=== PATIENT | female | born 1960 | race Caucasian/White ===

== ENCOUNTER 2017-01-12 23:30 | Inpatient (IN) | payer OTHER ==
--- NOTE | ~2017-01-12 | P ---
[facility] [place] [address] PROCEDURE REPORT Name: TESSA MCKEON Room #: 243-P ADM IN M.R.#: [id number] Admission: 01/13/17 Attend Phys: Rory Singletary MD Discharge: Date of : 64 Report #: [id number] THIS REPORT FOR: //name// CC: FAM unknown Rory Singletary DATE OF SERVICE: 01/13/2017 DATE OF SERVICE: 01/13/2017 PROCEDURE: Initially, right subclavian triple lumen catheter insertion was inadvertently placed in the right subclavian artery, then with subsequent left femoral line triple lumen venous catheter placement. INDICATION: Status post arrest, poor venous access. The patient requiring central access for vasopressors. PROCEDURE NOTATION: Right subclavian site was chosen cleansed with 2% chlorhexidine gluconate, ____ she was put in place and using maximal barrier method including head gown, mask, gloves. Right subclavian area was approached using an infraclavicular approach. Finder needle did aspirate arterial blood on the initial attempt, but no J wire was placed; however, after reattempting, slow drainage of blood was noted. J-wire was advanced with ectopy noted on the monitor. Needle was removed. A small dermotomy was then performed and dilator was advanced over the wire. Slow ooze of what appeared to be dark blood was then noted. A triple lumen catheter was then inserted to 18 cm using Seldinger technique. The J-wire was removed. This was sutured in place. The distal port was opened to air with slow flow of blood with nothing pulsatile. This was sutured in place. Chest x-ray suggested line was in the subclavian artery heading toward the aorta. Catheter was then connected to a pressure transducer which showed an arterial waveform. The left femoral site was then chosen. This was cleansed with 2% chlorhexidine gluconate. Again, using maximal barrier method sterile technique, left femoral artery using landmarks and exam. The left femoral vein was accessed easily on the first attempt. J wire was placed, small dermotomy, dilator, and then the triple lumen catheter using Seldinger technique was performed. This was then sutured in place. All lines flushed and aspirated easily. This was dressed with an OpSite and a Biopatch. At the conclusion of this procedure, the triple lumen catheter in the right subclavian area was then removed with pressure applied above and below the clavicle on the artery, provide adequate pressure, which pressure still being applied at the time of this dictation. By: [id number] Varghese Whitten MD /deng
--- NOTE | ~2017-01-12 | HC ---
[facility] [place] [address] CONSULTATION Name: TESSA MCKEON Room #: [facility]-P ADM IN M.R.#: [id number] Admission: 01/13/17 Attend Phys: Rory Singletary MD Discharge: Date of : 64 Report #: [id number] THIS REPORT FOR: //name// CC: FAM unknown Rory Singletary DATE OF SERVICE: 01/13/2017 CRITICAL CARE CONSULTATION DATE OF SERVICE: 01/13/2017 REFERRING PROVIDER: KRIS Mccarty REASON FOR CONSULTATION: Status post arrest, respiratory failure. HISTORY OF PRESENT ILLNESS: Our group was asked emergently to come and evaluate the patient while hospitalized at [facility]. Apparently, she presented to [facility] unresponsive, had been doing CPR in the home, had had multiple arrests requiring emergency medicines in transit, and presented to our ICU severely distressed, on mechanical ventilatory support, with dilated pupils, and with significant livedo reticularis and acrocyanosis. states she had been in her usual state of health with no complaints and also with no complaints of chest pain. She does have a known coronary history, but otherwise no other significant history reported, and despite some abdominal scars noted while in the ICU, attempted a right subclavian line, but was then inadvertently placed in the right subclavian artery. The patient has a left femoral venous line in place with findings of significant ____ fractures on exam. ALLERGIES: None known. PAST MEDICAL HISTORY: 1. Coronary artery disease. 2. History of tobacco use. CURRENT MEDICATIONS: Unknown. states patient may have stopped all medications about 1 year ago. SOCIAL HISTORY: Tobacco use. FAMILY HISTORY: Unobtainable due to current status. REVIEW OF SYSTEMS: Unobtainable due to current status. PHYSICAL EXAMINATION: [facility] [address] [place] [address] CONSULTATION Name: TESSA MCKEON Room #: 243-P [facility] IN .R.#: [id number] Admission: 01/13/17 Attend Phys: Rory Singletary MD Discharge: Date of : 64 Report #: [id number] VITAL SIGNS: Afebrile, pulse 100, respiratory rate of 34, blood pressure is 118/64. GENERAL: This is a middle-aged woman, unresponsive. HEENT: Reveals dilated pupils, ____ endotracheal tube in place. Edentulous mouth. NECK: Supple. LUNGS: Some coarse rhonchi heard throughout. CHEST: Revealed palpable crepitance over the right clavicle and sternal area. CARDIOVASCULAR: Heart was tachycardic, but regular. No murmurs noted. ABDOMEN: Slightly distended. EXTREMITIES: Cool, minimal pulse, the left femoral pulse was palpable, but no other significant pulses were noted in the extremities. Significant livedo reticularis and acrocyanosis noted. LABORATORY DATA: Current labs here most recent arterial blood gas revealed pH 6.94, pCO2 of 40, pO2 178, bicarbonate 8, lactate of 12, this is on assist control, tidal volume of 500, rate of 24, PEEP of 5, FiO2 100%. White blood cell count 16,000, hemoglobin 13, hematocrit 39, platelet count 200. Chemistry profile is pending. Of note, no urine output noted. The patient does have blood returning from the endotracheal tube. IMPRESSION: 1. Status post cardiopulmonary arrest, suspect cardiac event, less likely pulmonary embolism or other event. 2. Possible upper gastrointestinal bleed, may be a consequence of recent event. 3. Respiratory failure. 4. Known history of cardiac disease. 5. Profound lactic acidosis. 6. Inadvertent placement of a triple lumen catheter in the right subclavian artery. SUGGESTIONS: 1. The catheter in the right subclavian artery was removed with direct pressure being held at this time above and below the clavicle. 2. Bicarbonate drip. 3. Continuous ICU, aggressive supportive care. 4. Broad-spectrum antimicrobials. 5. Add Protonix drip. 6. Repeat laboratories with frequent hemoglobins. 7. Please see additional orders. The patient's overall prognosis appears poor given the dilated pupils and the prolonged resuscitation. At this time, hypothermia protocol is counter indicated due to possible coagulopathy and upper GI bleeding. We will follow. [address] [address] CONSULTATION Name: TESSA MCKEON Room #: 243-P [facility] IN M.R.#: [id number] Admission: 01/13/17 Attend Phys: Rory Singletary MD Discharge: Date of : 64 Report #: [id number] Total critical care time, not including procedures was 2 hours. By: [id number] Varghese Whitten MD /nt
--- NOTE | ~2017-01-12 | EKG ---
[address] [address] ELECTROCARDIOGRAM REPORT Name: TESSA MCKEON Room #: 243-P ADM IN M.R.#: [id number] Admission: 01/13/17 Attend Phys: Rory Singletary MD Discharge: Date of : 64 Report #: [id number] THIS REPORT FOR: //name// 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
--- NOTE | ~2017-01-12 | EKG ---
[address] [address] ELECTROCARDIOGRAM REPORT Name: TESSA MCKEON Room #: 243-P ADM IN M.R.#: [id number] Admission: 01/13/17 Attend Phys: Rory Singletary MD Discharge: Date of : 64 Report #: [id number] THIS REPORT FOR: //name// [facility] ED Test Date: 2017-01-13 Test Time: 05:01:20 Pat Name: TESSA MCKEON Department: Room: 243 P Gender: F Kaiawhina: Bao Dorsey : 1960 Requested By: Rory Singletary Order Number: [id number] MD: Measurements Intervals Mcarthur Rate: 105 P: VA: QRS: 109 QRSD: 155 T: -39 QT: 360 QTc: 476 Interpretive Statements Junctional tachycardia RBBB and LPFB No previous ECG available for comparison [email or web address] By: 0501 0501 Alana Warner MD /EPI
--- NOTE | ~2017-01-12 | H ---
[facility] [place] [address] HISTORY AND PHYSICAL Name: TESSA MCKEON Room #: 243-P ADM IN M.R.#: [id number] Admission: 01/13/17 Attend Phys: Rory Singletary MD Discharge: Date of : 64 Report #: [id number] THIS REPORT FOR: //name// CC: FAM unknown Rory Singletary DATE OF SERVICE: 01/13/2017 ATTENDING PHYSICIAN: Dr. Singletary. PRIMARY CARE PHYSICIAN: At an [facility] in [facility]. CHIEF COMPLAINT: Cardiac arrest. HISTORY OF PRESENT ILLNESS: The patient is a 56-year-old female who lives at home with her . Yesterday evening, he went to take a shower and said she was acting normal at that time. Then, he started showering, he cannot recall exactly how long he showered, but when he came out, he found her lying on the floor and unresponsive. He did not find pulse, so he immediately started CPR. He did run and get his phone and called 911 at one point, but EMS arrived quickly and resumed CPR and subsequently intubated her. They found her to be in PEA. She did receive 4-5 rounds of epinephrine as well as atropine and then amiodarone. She was shocked multiple times for V-tach rhythms. At the time of arrival to [place], she remained persistently hypotensive once the pulse was regained. She ended up getting dopamine, but at some point this was switched over to Levophed and she was transferred to our facility for higher level of care. Upon arrival here, her blood pressure was in 50s and it did take some time to improve her blood pressure. Per flight records, her blood pressure has been running persistently low. The patient remains unresponsive at this time. She has never been in our hospital system, but our family was able to provide some information regarding her past medical history. They state that she has history of heart disease and she has had 1 prior stent. 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 For some reason about a year ago, she stopped taking all of her medications including blood pressure and cholesterol medicine. She has not been complaining of any chest pain recently or shortness of breath. She has not had any recent illnesses such as vomiting or diarrhea or fevers that her is aware of. PAST MEDICAL HISTORY: Coronary artery disease with prior ME, hypertension, hyperlipidemia. PAST SURGICAL HISTORY: Coronary stent x 1 and abdominal surgery. ALLERGIES: No known drug allergies. MEDICATIONS: The patient has not taken any of her blood pressure, cholesterol [address] [address] HISTORY AND PHYSICAL Name: TESSA MCKEON Room #: 243-P ADM IN M.R.#: [id number] Admission: 01/13/17 Attend Phys: Rory Singletary MD Discharge: Date of : 64 Report #: [id number] or cardiac medications for the last year. SOCIAL HISTORY: Per spouse, he states that the patient has history of smoking up to 1 pack of cigarettes per day since the age of 14. She does drink a 6-pack of beer daily and smokes marijuana. 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 FAMILY HISTORY: Negative for any early coronary artery disease. REVIEW OF SYSTEMS: Unobtainable due to altered mental status. PHYSICAL EXAMINATION: GENERAL: The patient is an unresponsive female, currently on the ventilator. VITAL SIGNS: Temperature 93, heart rate 78, respirations 15, blood pressure 65/55, oxygen 86% on 50% FiO2. HEENT: Pupils are fixed and dilated. Sclerae nonicteric. Oral mucosa is pink with ET tube in place. NECK: No JVD noted. CARDIAC: Heart tones are very distant and difficult to auscultate, but regular. RESPIRATORY: Breath sounds are clear bilaterally, diminished in both bases. She is breathing with the ventilator but does breathe above the vent rate at times. ABDOMEN: Round, slightly firm. No bowel sounds. She has an OG-tube in place with some blood secretions. There is a healed midline abdominal incision from prior surgery. VASCULAR: She does have mottling throughout bilateral hands and feet and buttock areas and is cool. All peripheral pulses are very difficult to feel. We are only able to get a Doppler pulse in her left femoral artery. NEUROLOGIC: The patient is unresponsive and will not follow any commands. LABORATORY DATA AND DIAGNOSTICS: Done at [place]. WBC is 11.9, hemoglobin 14.3, platelets 199. Sodium 130, potassium 3.9, BUN 8, creatinine , glucose 187, anion gap of 19, calcium 8.3, AST 524, ALT 399. Troponin is 0.33. BNP 466. EKG shows atrial fibrillation, lactic acid is 7.4. INR 1.3. Chest x-ray showed bilateral pulmonary infiltrates and pulmonary edema. ABGs showed a pH of 7.041, pCO2 of 47.3, pO2 of 199, bicarbonate at 12.4, lactate of 13.8 on repeat check. ASSESSMENT AND PLAN: 1. Post cardiac arrest. The patient was initially started on the code ice protocol but because she has remained persistently hypotensive despite vasopressors, she did meet exclusion criteria. Continue with the current plan with vasopressors and IV fluids. Check all labs now including electrolytes and troponins. Her troponin is likely to be elevated after shock and CPR. Cardiology and Pulmonary are consulted. The patient does overall have a very poor prognosis and the family is aware of this that she may not come out of this with any quality of life because of extensive downtime without a pulse. At this point, they do want to continue with full code status and await further [facility] [address] [place] [address] HISTORY AND PHYSICAL Name: TESSA MCKEON Room #: 243-P ADM IN M.R.#: [id number] Admission: 01/13/17 Attend Phys: Rory Singletary MD Discharge: Date of : 64 Report #: [id number] specialist input. 2. Acute respiratory failure secondary to #1. Continue with vent management per Pulmonary and add breathing treatments. Follow ABGs. 3. Severe metabolic acidosis secondary to #1. She was given 2 amps of bicarbonate upon arrival here and is now initiating on a bicarbonate drip. Follow ABGs. 4. Possible sepsis with pneumonia. Start antibiotic per Pulmonary and check blood cultures. 5. Altered mental status. The patient likely has hypoxic brain injury and when she is stable enough, we will likely need to get a CT of the head. Overall, greater than 90 minutes of critical care time was spent with the patient and with family to discuss the hard situation and discussions with Dr. Whitten. At this point, she will remain a full code and continue with aggressive treatment with vasopressors and fluids. Follow labs closely. Monitor for DIC. <ELECTRONICALLY SIGNED> By: KRIS Roper 01/13/1738 6 KRIS Roper /deng
--- NOTE | ~2017-01-12 | 2DMMODE ---
[facility] [address] [place] [address] 2 D/M-MODE ECHOCARDIOGRAM Name: TESSA MCKEON Room #: 243-P ADM IN M.R.#: [id number] Admission: 01/13/17 Attend Phys: Rory Singletary, Discharge: Date of : 64 Date of Service: 01/13/17 0919 Report #: [id number] THIS REPORT FOR: //name// APPROVED REPORT Study performed: 01/13/2017 07:47:41 EXAM: Comprehensive 2D, Doppler, and color-flow Echocardiogram Patient Location: ICU Room #: 243 Status: stat BSA: 1.77 HR: 85 bpm BP: 57/39 mmHg Other Information Study Quality: Good Indications S^P cardiac arrest 2D Dimensions RVDd: 28.78 mm LVEF(%): 29.65 (>50%) IVSd: 10.80 (7-11mm) LVOT Diam: 18.89 (18-24mm) LVDd: 39.31 mm PWd: 11.15 (7-11mm) Ascending Ao: 29.81 (22-36mm) LVDs: 33.95 (25-40mm) Aortic Root: 29.43 mm IVC: 19.00 mm Isaac's LVEF: 29.65 % Volumes Left Atrial Volume (Systole) Single Plane 4CH: 39.68 mL Single Plane 2CH: 33.20 mL LA ESV Index: 24.00 mL/m2 Aortic Valve AoV Peak Godfrey.: 0.74 m/s AO Peak Gr.: 2.68 mmHg LVOT Max P.78 mmHg LVOT Max V: 0.44 m/s AMANDA Vmax: 1.66 cm2 Mitral Valve E/A Ratio: 1.0 MV Decel. Time: 234.16 ms MV E Max Godfrey.: 0.30 m/s [facility] [place] [place] [address] 2 D/M-MODE ECHOCARDIOGRAM Name: TESSA MCKEON Room #: 243-P [facility] IN .R.#: [id number] Admission: 01/13/17 Attend Phys: Rory Singletary, Discharge: Date of : 64 Date of Service: 01/13/17 0919 Report #: [id number] MV A Godfrey.: 0.30 m/s MV PHT: 67.91 ms Pulmonary Valve PV Peak Godfrey.: 0.52 m/s PV Peak Gr.: 1.14 mmHg Tricuspid Valve TR Peak Godfrey.: 1.53 m/s TR Peak Gr.: 9.31 mmHg PA Pressure: 19.00 mmHg Left Ventricle The left ventricle is normal size. There is normal left ventricular wall thickness. Left ventricular ejection fraction is severely decreased. LVEF is 20%. This study is not technically sufficient to allow evaluation of the LV diastolic function. Right Ventricle The right ventricle is normal size. Right ventricular systolic function is severely reduced. Atria The left atrium size is normal. The right atrium size is normal. Aortic Valve The aortic valve is normal in structure. No aortic regurgitation is present. There is no aortic valvular stenosis. Mitral Valve The mitral valve is normal in structure. There is no mitral valve regurgitation noted. No evidence of mitral valve stenosis. Tricuspid Valve The tricuspid valve is normal in structure. There is trace tricuspid regurgitation. The right atrial pressure is estimated at 10 mmHg. There is no pulmonary hypertension. Estimated PAP was 19 mmHg. Pulmonic Valve The pulmonary valve is normal in structure. Trace pulmonic regurgitation. Great Vessels The aortic root is normal in size. IVC is normal in size and collapses <50% with inspiration. [address] [address] 2 D/M-MODE ECHOCARDIOGRAM Name: TESSA MCKEON Room #: 243-P [facility] IN ..#: [id number] Admission: 01/13/17 Attend Phys: Rory Singletary, Discharge: Date of : 64 Date of Service: 01/13/17 0919 Report #: [id number] Pericardium There is no pericardial effusion. <Conclusion> Left ventricular ejection fraction is severely decreased. G LVEF is 20-25%. The aortic valve is normal in structure. No aortic regurgitation or stenosis The mitral valve is normal in structure. No mitral valve regurgitation noted. There is no pericardial effusion. <ELECTRONICALLY SIGNED> By: Jarrett Beck MD, [facility] 01/13/17918 8 8 Jarrett Beck MD, [facility] /INF
[2017-01-13] VITALS (57 sets, daily range): BP systolic 41–143; BP diastolic 12–106
[2017-01-13 02:30] LABS: ABG SAMPLE TYPE ARTERIAL; BE(vivo) -29.2 mmol/L (-2 to +3); HCO3 3.4 mmol/L (22.0-26.0); O2(CT) 5.6 mL/dL (15.0-23.0); PO2 65.7 mmHg (80.0-100.0); sO2 67.3 % (92.0-98.0); tCO2 4.1 mmol/L (24.0-30.0)
[2017-01-13 02:31] LABS: ABG SAMPLE TYPE ARTERIAL; HCO3 12.4 mmol/L (22.0-26.0); O2Hb 94.7 % (92.0-98.0); PCO2 47.3 mmHg (35.0-45.0); PO2 199.9 mmHg (80.0-100.0); sO2 98.8 % (92.0-98.0); tCO2 13.9 mmol/L (24.0-30.0)
[2017-01-13 02:31] LABS: LACTATE 3.84 mmol/L (0.5-2.0); O2Hb 67.4 % (92.0-98.0); PCO2 24.8 mmHg (35.0-45.0); STICK SITE R.BRACHIAL; TIDAL VOLUME 420 ml; pH 6.753 (7.360-7.450)
[2017-01-13 02:32] LABS: LACTATE 13.84 mmol/L (0.5-2.0); STICK SITE SUBCLAVIAN; TIDAL VOLUME 500 ml; pH 7.037 (7.360-7.450)
[2017-01-13 02:33] LABS: ABG COMMENT A/C MODE
[2017-01-13 02:34] LABS: ABG COMMENT A/C MODE
[2017-01-13 02:54] LABS: ABG SAMPLE TYPE ARTERIAL; BE(vivo) -23.2 mmol/L (-2 to +3); HCO3 8.4 mmol/L (22.0-26.0); LACTATE 12.09 mmol/L (0.5-2.0); O2(CT) 17.5 mL/dL (15.0-23.0); O2Hb 95.7 % (92.0-98.0); PCO2 39.9 mmHg (35.0-45.0); PO2 178.9 mmHg (80.0-100.0); STICK SITE SUBCLAVIAN LINE; pH 6.943 (7.360-7.450); sO2 98.2 % (92.0-98.0); tCO2 9.7 mmol/L (24.0-30.0)
[2017-01-13 02:55] LABS: ABG COMMENT A/C MODE; TIDAL VOLUME 500 ml
[2017-01-13 02:59] LABS: HEMATOCRIT 39.1 % (37.0-47.0); HEMOGLOBIN 12.7 gm/dL (12.0-15.0); MCH 32.9 pg (26.0-34.0); MCHC 32.5 g/dL (28.0-37.0); MCV 101.2 fL (80.0-100.0); RBC 3.86 mil/uL (4.20-5.00); RDW 14.4 % (10.5-14.5); WBC 16.3 thou/uL (4.0-11.0)
[2017-01-13 03:45] LABS: ANION GAP 20 mmol/L (7-16); BUN 10 mg/dL (7-18); CHLORIDE 100 mmol/L (98-107); CO2 15 mmol/L (21-32); CREATININE 1.1 mg/dL (0.6-1.0); GLUCOSE 262 mg/dL (74-106); POTASSIUM 3.4 mmol/L (3.5-5.1); SODIUM 135 mmol/L (136-145)
[2017-01-13 03:46] LABS: ALBUMIN 2.2 g/dL (3.4-5.0); ALKALINE PHOSPHATASE 158 U/L (46-116); CALCIUM 7.7 mg/dL (8.5-10.1); MAGNESIUM 3.2 mg/dL (1.8-2.4); SGPT 1338 U/L (30-65); TOTAL BILIRUBIN 0.6 mg/dL (<0.1-1.0); TOTAL PROTEIN 4.8 g/dL (6.4-8.2)
[2017-01-13 04:34] LABS: SGOT 2479 U/L (15-37)
[2017-01-13 04:43] LABS: TROPONIN-I > 200.00 ng/mL (<0.04-0.07)
[2017-01-13 05:00] LABS: ABG SAMPLE TYPE ARTERIAL; BE(vivo) -5.7 mmol/L (-2 to +3); HCO3 22.5 mmol/L (22.0-26.0); LACTATE 17.15 mmol/L (0.5-2.0); O2(CT) 12.6 mL/dL (15.0-23.0); O2Hb 96.8 % (92.0-98.0); PCO2 60.2 mmHg (35.0-45.0); PO2 156.1 mmHg (80.0-100.0); pH 7.191 (7.360-7.450); sO2 98.5 % (92.0-98.0); tCO2 24.4 mmol/L (24.0-30.0)
[2017-01-13 05:02] LABS: ABG COMMENT BAGGING/POST ROSC
[2017-01-13 05:03] LABS: INR 3.6; PROTIME 35.7 Seconds (9.3-11.4)
[2017-01-13 05:08] LABS: APTT 111.3 Seconds (24.5-32.8)
== END 2017-01-13 09:04 | DRG 208 ==
LOC: ICU 23:30
PROVIDERS: Internal Medicine; Internal Medicine Pulmonary Disease; Nurse Practitioner Acute Care
PROC: 5A12012 Performance of Cardiac Output, Single, Manual (ICD-10-PCS; principal; 2017-01-13)
PROC: 5A1935Z Respiratory Ventilation, Less than 24 Consecutive Hours (ICD-10-PCS; principal; 2017-01-13)
PROC: 0BH17EZ Insertion of Endotracheal Airway into Trachea, Via Natural or Artificial Opening (ICD-10-PCS; principal; 2017-01-13)
PROC: 02HV33Z Insertion of Infusion Device into Superior Vena Cava, Percutaneous Approach (ICD-10-PCS; principal; 2017-01-13)
DX: J96.01 Acute respiratory failure with hypoxia (principal); G93.1 Anoxic brain damage, not elsewhere classified; E87.2 Acidosis; I25.10 Atherosclerotic heart disease of native coronary artery without angina pectoris; I46.9 Cardiac arrest, cause unspecified; I25.5 Ischemic cardiomyopathy; Z66 Do not resuscitate; I10 Essential (primary) hypertension; E78.5 Hyperlipidemia, unspecified; M19.90 Unspecified osteoarthritis, unspecified site; Z90.710 Acquired absence of both cervix and uterus; I25.2 Old myocardial infarction; Z79.899 Other long term (current) drug therapy
CPT/HCPCS: 10078; 85010; 85026